=== PATIENT | male | born 1970 | race Asian ===

== ENCOUNTER → 2017-07-06 | Outpatient (CLI) | payer OTHER ==
[2017-07-06] MEDS: REGADENOSON 0.4 MG/5 ML DISP.SYRIN. IV (10:15)
== END | disposition home or self-care (01) ==
LOC: NM 09:01
DX: R06.09 Other forms of dyspnea (principal)
CPT/HCPCS: 78452; 93017; 93306; 96374; 96375; 96376; A9500; J2785